=== PATIENT | female | born 1995 | race Asian ===

== ENCOUNTER 2019-06-02 09:58 | Emergency (ER) | payer SELFPAY ==
--- NOTE | 2019-06-02 10:18 | EDM.PDOC ---
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, felt fine earlier this AM, at 9:30 AM pt with sudden onset of pain in her L flank down to her L groin she took ibuprofen x 5, pain better on arrival to ED brought in by her father no meds, no PMH LMP 4w ago, gets menses monthly, not on BCP soft BM, no dysuria no prior abd pain L abdomen Pain Score (Numeric/FACES): 10 - Related Data Allergies Allergy/AdvReac Type Severity Reaction Status Date / Time No Known Allergies Allergy Verified 06/02/19 10:07 Home Meds: Home Meds Hydrocodone/Acetaminophen [[place] 5-325 Tablet] 1 each PO Q6H #8 tablet 06/02/19 [Rx] Ketorolac [Toradol] 10 mg PO QID #20 tab 06/02/19 [Rx] ED ROS GENERAL - Review of Systems Review Of Systems: See Below Constitutional: Reports: No Symptoms HEENT: Reports: No Symptoms Respiratory: Reports: No Symptoms Cardiovascular: Reports: No Symptoms Endocrine: Reports: No Symptoms GI/Abdominal: Reports: Abdominal Pain : Reports: No Symptoms Musculoskeletal: Reports: No Symptoms Skin: Reports: No Symptoms Neurological: Reports: No Symptoms Psychiatric: Reports: No Symptoms Hematologic/Lymphatic: Reports: No Symptoms Immunologic: Reports: No Symptoms ED EXAM, GENERAL - Physical Exam Exam: See Below Exam Limited By: No Limitations General Appearance: Alert, WD/WN, No Apparent Distress Ears: Normal External Exam, Hearing Grossly Normal Nose: Normal Inspection, Normal Mucosa, No Blood Throat/Mouth: Normal Inspection, Normal Lips, Normal Teeth, Normal Gums, Normal Oropharynx, Normal Voice, No Airway Compromise Head: Atraumatic, Normocephalic Neck: Normal Inspection, Supple, Non-Tender, Full Range of Motion. No: Lymphadenopathy (R), Lymphadenopathy (L) Respiratory/Chest: No Respiratory Distress, Lungs Clear, Normal Breath Sounds, No Accessory Muscle Use, Chest Non-Tender Cardiovascular: Regular Rate, Rhythm, No Edema, No Gallop, No JVD, No Murmur, No Rub GI/Abdominal: Normal Bowel Sounds, Soft, No Organomegaly, No Distention, Other ( 1+ tender at L flank and LLQ in midline, no CVAT b/l, soft, ND, no guard/rebound ). No: Distended, Guarding, Rigid, Rebound Back Exam: Normal Inspection, Full Range of Motion. No: CVA Tenderness (R), CVA Tenderness (L) Extremities: Normal Inspection, Normal Range of Motion, Non-Tender, No Pedal Edema Neurological: Alert, Oriented, CN II-XII Intact, Normal Cognition, No Motor/ Sensory Deficits Psychiatric: Normal Affect, Normal Mood Skin Exam: Warm, Dry, Intact, Normal Color, No Rash Lymphatic: No Adenopathy Course - Vital Signs Last Recorded V/S: Last Vital Signs Temp 35.9 C 06/02/19 09:58 Pulse 69 06/02/19 09:58 Resp 18 06/02/19 09:58 BP 108/60 06/02/19 09:58 Pulse Ox 100 06/02/19 09:58 - Orders/Labs/Meds Orders: Active Orders 24 hr Category Date Time Status Abdomen Pelvis wo Cont [CT] Stat Exams 06/02/19 10:13 Ordered Labs: Laboratory Tests 06/02/19 06/02/19 06/02/19 Range/Units 10:02 10:02 10:25 WBC 6.7 (4.5-12.0) X10-3/uL RBC 4.16 (3.23-5.20) x10(6)uL Hgb 12.6 (11.5-15.5) g/dL Hct 39.3 (30.0-51.3) % MCV 94.6 (80-96) fL MCH 30.3 (27.7-33.6) pg MCHC 32.1 L (32.2-35.4) g/dL RDW 11.8 (11.5-15.5) % Plt Count 277 (125-369) X10(3)uL MPV 8.0 (7.4-10.4) fL Neut % (Auto) 63.1 (46-82) % Lymph % (Auto) 31.6 (13-37) % [place] % (Auto) 3.1 L (4-12) % Eos % (Auto) 1 (1.0-5.0) % Baso % (Auto) 1 (0-2) % Neut # (Auto) 4.2 (1.6-8.3) # Lymph # (Auto) 2.1 (0.6-5.0) # [place] # (Auto) 0.2 (0.0-1.3) # Eos # (Auto) 0.1 (0.0-0.8) # Baso # (Auto) 0.1 (0.0-0.2) # Sodium (135-145) mmol/L Potassium (3.5-5.3) mmol/L Chloride (100-110) mmol/L Carbon Dioxide (21-32) mmol/L BUN (7-18) mg/dL Creatinine (0.55-1.02) mg/dL Est Cr Clr Drug Dosing mL/min Estimated GFR (MDRD) (>60) BUN/Creatinine Ratio (9-20) Glucose (80-116) mg/dL Calcium (8.6-10.2) mg/dL Total Bilirubin (0.1-1.3) mg/dL AST (5-25) IU/L ALT (12-36) U/L Alkaline Phosphatase (56-112) IU/L C-Reactive Protein (0.5-0.9) mg/dL Total Protein (6.0-8.0) g/dL Albumin (3.5-5.2) g/dL Globulin g/dL Albumin/Globulin Ratio Urine Color Yellow (YELLOW) Urine Appearance Slightly cloudy (CLEAR) Urine pH 5.0 (5.0-6.5) Ur Specific [place] 1.020 (1.010-1.025) Urine Protein Negative (NEGATIVE) mg/dL Urine Glucose (UA) Normal (NORMAL) mg/dL Urine Ketones Negative (NEGATIVE) mg/dL Urine Occult Blood Large H (NEGATIVE) Urine Nitrite Negative (NEGATIVE) Urine Bilirubin Negative (NEGATIVE) Urine Urobilinogen Normal (NEGATIVE) mg/dL Ur Leukocyte Esterase Negative (NEGATIVE) Urine RBC >100 H (0-5) Urine WBC 0-5 (0-5) Ur Squamous Epith Cells Moderate H (NS,R,O) Urine Bacteria Many H (NS) Urine Mucus Few H (NS) Urine HCG, Qual Negative (NEGATIVE) 06/02/19 06/02/19 Range/Units 10:25 10:25 WBC (4.5-12.0) X10-3/uL RBC (3.23-5.20) x10(6)uL Hgb (11.5-15.5) g/dL Hct (30.0-51.3) % MCV (80-96) fL MCH (27.7-33.6) pg MCHC (32.2-35.4) g/dL RDW (11.5-15.5) % Plt Count (125-369) X10(3)uL MPV (7.4-10.4) fL Neut % (Auto) (46-82) % Lymph % (Auto) (13-37) % [place] % (Auto) (4-12) % Eos % (Auto) (1.0-5.0) % Baso % (Auto) (0-2) % Neut # (Auto) (1.6-8.3) # Lymph # (Auto) (0.6-5.0) # [place] # (Auto) (0.0-1.3) # Eos # (Auto) (0.0-0.8) # Baso # (Auto) (0.0-0.2) # Sodium 139 (135-145) mmol/L Potassium 3.6 (3.5-5.3) mmol/L Chloride 104 (100-110) mmol/L Carbon Dioxide 23 (21-32) mmol/L BUN 9 (7-18) mg/dL Creatinine 0.8 (0.55-1.02) mg/dL Est Cr Clr Drug Dosing 92.83 mL/min Estimated GFR (MDRD) > 60 (>60) BUN/Creatinine Ratio 11.3 (9-20) Glucose 89 (80-116) mg/dL Calcium 8.7 (8.6-10.2) mg/dL Total Bilirubin 0.3 (0.1-1.3) mg/dL AST 19 (5-25) IU/L ALT 27 (12-36) U/L Alkaline Phosphatase 47 L (56-112) IU/L C-Reactive Protein < 0.2 L (0.5-0.9) mg/dL Total Protein 7.9 (6.0-8.0) g/dL Albumin 4.1 (3.5-5.2) g/dL Globulin 3.8 g/dL Albumin/Globulin Ratio 1.1 Urine Color (YELLOW) Urine Appearance (CLEAR) Urine pH (5.0-6.5) Ur Specific [place] (1.010-1.025) Urine Protein (NEGATIVE) mg/dL Urine Glucose (UA) (NORMAL) mg/dL Urine Ketones (NEGATIVE) mg/dL Urine Occult Blood (NEGATIVE) Urine Nitrite (NEGATIVE) Urine Bilirubin (NEGATIVE) Urine Urobilinogen (NEGATIVE) mg/dL Ur Leukocyte Esterase (NEGATIVE) Urine RBC (0-5) Urine WBC (0-5) Ur Squamous Epith Cells (NS,R,O) Urine Bacteria (NS) Urine Mucus (NS) Urine HCG, Qual (NEGATIVE) - Re-Assessments/Exams Free Text/Narrative Re-Assessment/Exam: 06/02/19 11:10 4.1 [address] stone on CT, d/w pt and her father pt drinks plenty of fluids Departure - Departure Time of Disposition: 11:10 Disposition: Home, Self-Care 01 Condition: Good Clinical Impression: Renal colic on left side, Left ureteral stone - Discharge Information *PRESCRIPTION DRUG MONITORING PROGRAM REVIEWED*: Not Applicable *COPY OF PRESCRIPTION DRUG MONITORING REPORT IN PATIENT MIGUELINA: Not Applicable Prescriptions: Hydrocodone/Acetaminophen [[place] 5-325 Tablet] 1 each PO Q6H #8 tablet Ketorolac [Toradol] 10 mg PO QID #20 tab Instructions: Renal Colic, Kidney Stones Referrals: PCP,None [Primary Care Provider] - Forms: ED Return to Work/School Form Additional Instructions: For pain and to relax the ureter, take ketorolac 10 mg 1 tab 4 times a day for 5 days, until you pass the stone. For pain, as needed, take hydrocodone with acetaminophen 5/325 mg 1 tab every 6 hours. No alcohol. Screen your urine and save the stone to take to your physician. Maintain fluids. May work tomorrow. Return to ED if you have other symptoms or pain at home that is not controlled with medications. See your physician in 4 days. - My Orders Last 24 Hours: My Active Orders 06/02/19 10:13 Abdomen Pelvis wo Cont [CT] Stat - Assessment/Plan Last 24 Hours: My Active Orders 06/02/19 10:13 Abdomen Pelvis wo Cont [CT] Stat
[2019-06-02] MEDS: Acetaminophen/HYDROcodone 325-5 MG Tab PO ONE (11:33)
--- NOTE | 2019-06-02 11:59 | CT ---
INDICATION: Sudden left flank pain and left lower quadrant pain. CT ABDOMEN AND PELVIS WITHOUT CONTRAST: Spiral 2.5 mm axial sections were obtained through the abdomen and pelvis without contrast, with sagittal and coronal reconstructions - renal calculus protocol. Total exam DLP = 282.65 mGy -cm. Lower lung keen and pleural spaces visualized appeared normal. The heart is normal in size. No pericardial effusion is seen. The liver, gallbladder, spleen, pancreas, adrenal glands, right kidney, and retroperitoneum appeared essentially normal. At the left kidney, there is a mild degree of hydronephrosis with a 3.1 x 4.1 mm calculus noted at the proximal left ureter. Relatively mild obstructive uropathy is present at this time. No evidence of bowel obstruction or free air was seen. The appendix was not definitely visualized. No other organomegaly, mass lesions, or free fluid collections were identified in the abdomen or pelvis. The uterus is retroflexed. IMPRESSION: Although there is no evidence of renal calcinosis, there is a mild degree of obstructive uropathy at the left kidney due to a 3.1 x 4.1 mm calculus at the proximal left ureter. Report was called to Dr. Crump at 1052 hours on 06/02/19. [facility]
== END 2019-06-02 11:42 | disposition home or self-care (01) ==
LOC: FB.ED 09:58
DX: N20.2 Calculus of kidney with calculus of ureter (principal)
CPT/HCPCS: 36415; 74176; 80053; 81001; 81025; 85025; 86140; 99284; A9270